=== PATIENT | female | born 1990 | race Two or more races ===

== ENCOUNTER 2020-11-06 19:35 | Emergency (ER) | payer BC ==
[~2020-11-06] VITALS: Ht 167.6 cm; Wt 83.5 kg
[2020-11-06] MEDS ORDERED: LYRICA300 MG PO (19:56)
[2020-11-06] MEDS ORDERED: IBU800 MG PO (19:57)
[2020-11-06] MEDS ORDERED: TRAMADOL HCL E100 MG PO (19:57)
== END 2020-11-06 21:46 | disposition home or self-care (01) ==
LOC: ER 19:35
DX: E11.65 Type 2 diabetes mellitus with hyperglycemia (principal); L02.811 Cutaneous abscess of head [any part, except face]